=== PATIENT | female | born 1990 | race Caucasian/White ===

== ENCOUNTER 2016-08-28 09:52 | Emergency (ER) | payer OTHER ==
[~2016-08-28 09:52] MED LIST: BIOT800T PO; BUTA1CAP29 PO; CIPR500T94 PO; DIAZ10TA PO; HYDR-2678 PO; HYDR-971 PO; HYDR12.58 PO; OXYC-323 PO; POTA10TA17 PO; PROM12.553 RC; PROM25TA10 PO; [UNRECOGNIZED DRUG - OTHER]
[2016-08-28 09:55] VITALS: BP 125/61
[2016-08-28 10:29] LABS: BASO # 0.1 x10^3/uL (0.0-0.2); BASO % 1 % (0-3); EOS # 0.2 x10^3/uL (0.0-0.7); EOS % 3 % (0-3); HEMATOCRIT 41.2 % (36.0-47.0); LYMPH # 2.2 x10^3/uL (1.0-4.8); LYMPH % 35 % (24-48); MEAN CORPUSCULAR HEMOGLOBIN 28 pg (25-35); MEAN CORPUSCULAR HGB CONC 32 g/dL (31-37); MEAN CORPUSCULAR VOLUME 87 fL (79-100); MONO # 0.4 x10^3/uL (0.0-1.1); MONO % 6 % (0-9); NEUT # 3.5 x10^3uL (1.8-7.7); NEUT % 56 % (31-73); PLATELET COUNT 441 x10^3/uL (140-400); RED BLOOD COUNT 4.74 x10^6/uL (3.50-5.40); WHITE BLOOD COUNT 6.3 x10^3/uL (4.0-11.0)
[2016-08-28] MEDS ORDERED: HYDROMORPHONE PF 1 MG/ML DISP.SYRIN. IV ONE (10:45)
[2016-08-28] MEDS ORDERED: ONDANSETRON PF 4 MG/2 ML VIAL. IV ONE (10:45)
[2016-08-28] MEDS ORDERED: KETOROLAC 15 MG/ML VIAL. IV ONE (10:45)
[2016-08-28 11:29] LABS: AMORPHOUS SEDIMENT,UR PRESENT /HPF; BACTERIA,URINE 0 /HPF (0-FEW); BILIRUBIN,URINE NEG (NEG); CLARITY,URINE HAZY; COLOR,URINE YELLOW; GLUCOSE,URINE NEG (NEG); NITRITE,URINE NEG (NEG); SQUAMOUS EPITHELIAL CELL,UR FEW /LPF; UROBILINOGEN,URINE 0.2 mg/dL (0.2 mg/dL)
--- NOTE | 2016-08-28 12:27 | ED.ADGEN ---
Past History Past Medical History: Kidney Stones, Other Additional Past Medical Histor: Hyperemesis gravidarum Past Surgical History: Tonsillectomy, Other Smoking: Non-smoker Alcohol Use: None Drug Use: None Adult General HPI HPI Patient is a 26 y/o female with extensive kidney stone and pyelonephritis history c/o worsening left flank pain for last 24 hours. Associated nausea. s/p vaginal childbirth 1 month ago. 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 Would like to avoid imaging if possible. Currently nursing. Review of Systems Review of Systems Constitutional: Denies fever or chills [] Eyes: Denies change in visual acuity, redness, or eye pain [] HENT: Denies nasal congestion or sore throat [] Respiratory: Denies cough or shortness of breath [] Cardiovascular: No additional information not addressed in HPI [] GI: Denies abdominal pain, nausea, vomiting, bloody stools or diarrhea [] : Denies dysuria or hematuria [] Musculoskeletal: Denies back pain or joint pain [] Integument: Denies rash or skin lesions [] Neurologic: Denies headache, focal weakness or sensory changes [] Endocrine: Denies polyuria or polydipsia [] Current Medications Current Medications Current Medications Medications (Trade) Dose Ordered Sig/Poly Start Time Stop Time Status Last Admin Dose Admin Hydromorphone HCl (Dilaudid) 1 mg 1X ONCE 08/28/16 10:45 08/28/16 10:46 DC 08/28/16 10:35 1 MG Ketorolac Tromethamine (Toradol) 15 mg 1X ONCE 08/28/16 10:45 08/28/16 10:46 DC 08/28/16 10:35 15 MG Ondansetron HCl (Zofran) 4 mg 1X ONCE 08/28/16 10:45 08/28/16 10:46 DC 08/28/16 10:35 4 MG Allergies Allergies Allergies Coded Allergies Type Severity Reaction Last Updated Verified Latex, Natural Rubber Allergy Severe Rash 07/28/15 Yes Sulfa (Sulfonamide Antibiotics) Allergy Severe Hives 07/28/15 Yes amoxicillin Allergy Severe Diarrhea 07/28/15 Yes clavulanic acid Allergy Severe Diarrhea 07/28/15 Yes Physical Exam Physical Exam Constitutional: Well developed, well nourished, no acute distress, non-toxic appearance. [] HENT: Normocephalic, atraumatic, bilateral external ears normal, oropharynx moist, no oral exudates, nose normal. [] Eyes: PERRLA, EOMI, conjunctiva normal, no discharge. [] Neck: Normal range of motion, no tenderness, supple, no stridor. [] Cardiovascular:Heart rate regular rhythm, no murmur [] Lungs & Thorax: Bilateral breath sounds clear to auscultation [] Abdomen: Bowel sounds normal, soft, no tenderness, no masses, no pulsatile masses. [] Skin: Warm, dry, no erythema, no rash. [] Back: No tenderness, left CVA tenderness. [] Extremities: No tenderness, no cyanosis, no clubbing, ROM intact, no edema. [] Neurologic: Alert and oriented X 3, normal motor function, normal sensory function, no focal deficits noted. [] Psychologic: Affect normal, judgement normal, mood normal. [] Current Patient Data Vital Signs Vital Signs Date Time Temp Pulse Resp B/P Pulse Ox O2 Delivery O2 Flow Rate FiO2 08/28/16 10:35 18 08/28/16 09:55 98.4 75 97 Room Air Lab Results Laboratory Tests Test 08/28/16 10:05 08/28/16 10:16 Urine Collection Type Unknown Urine Color Yellow Urine Clarity Hazy Urine pH 5.5 Urine Specific [place] 1.010 Urine Protein Neg (NEG-TRACE) Urine Glucose (UA) Negmg/dL (NEG) Urine Ketones (Stick) Negmg/dL (NEG) Urine Blood Mod (NEG) Urine Nitrite Neg (NEG) Urine Bilirubin Neg (NEG) Urine Urobilinogen Dipstick 0.2mg/dL (0.2 mg/dL) Urine Leukocyte Esterase Small (NEG) Urine RBC 3-5/HPF (0-2) Urine WBC 1-4/HPF (0-4) Urine Squamous Epithelial Cells Few/LPF Urine Transitional Epithelial Cells Occ/LPF Urine Amorphous Sediment Present/HPF Urine Bacteria 0/HPF (0-FEW) Urine Mucus Mod/LPF White Blood Count 6.3x10^3/uL (4.0-11.0) Red Blood Count 4.74x10^6/uL (3.50-5.40) Hemoglobin 13.0g/dL (12.0-15.5) Hematocrit 41.2% (36.0-47.0) Mean Corpuscular Volume 87fL (79-100) Mean Corpuscular Hemoglobin 28pg (25-35) Mean Corpuscular Hemoglobin Concent 32g/dL (31-37) Red Cell Distribution Width 16.0% (11.5-14.5) H Platelet Count 441x10^3/uL (140-400) H Neutrophils (%) (Auto) 56% (31-73) Lymphocytes (%) (Auto) 35% (24-48) Monocytes (%) (Auto) 6% (0-9) Eosinophils (%) (Auto) 3% (0-3) Basophils (%) (Auto) 1% (0-3) Neutrophils # (Auto) 3.5x10^3uL (1.8-7.7) Lymphocytes # (Auto) 2.2x10^3/uL (1.0-4.8) Monocytes # (Auto) 0.4x10^3/uL (0.0-1.1) Eosinophils # (Auto) 0.2x10^3/uL (0.0-0.7) Basophils # (Auto) 0.1x10^3/uL (0.0-0.2) EKG EKG [] Radiology/Procedures Radiology/Procedures [] Course & Med Decision Making Course & Med Decision Making Pertinent Labs and Imaging studies reviewed. (See chart for details) Zofran, Dilaudid, and toradol given here. Soft signs of UTI on UA. Culture sent but rx for cipro given. Supportive care and follow up instructions given. [] Final Impression Final Impression Left flank pain[] Problems: Dragon Disclaimer Dragon Disclaimer This electronic medical record was generated, in whole or in part, using a voice recognition dictation system. RAMONA HALEY MD Aug 28, 2016 12:27
[2016-08-28 13:42] LABS: HEMOGLOBIN ISTAT 14.3 gm/dL; POTASSIUM ISTAT 4.1 mmol/L (3.5-5.0)
== END 2016-08-28 11:13 | disposition home or self-care (01) ==
LOC: ER 09:52
DX: O90.89 Other complications of the puerperium, not elsewhere classified (principal); R10.9 Unspecified abdominal pain; Z87.442 Personal history of urinary calculi; Z88.2 Allergy status to sulfonamides; Z88.1 Allergy status to other antibiotic agents; Z91.040 Latex allergy status
CPT/HCPCS: 36415; 80047; 81001; 85027; 87086; 96374; 96375; 99284; J1170; J1885; J2405; 99285-25

== ENCOUNTER 2016-08-28 17:24 | Emergency (ER) | payer OTHER ==
[2016-08-28] MEDS ORDERED: HYDROMORPHONE PF 1 MG/ML DISP.SYRIN. IV ONE (17:45)
--- NOTE | 2016-08-28 17:53 | RAD ---
PROCEDURE CT scan of the abdomen and pelvis without contrast 08/28/2016 HISTORY Right flank pain. History of recent nephrostomy tube placement. TECHNIQUE Unenhanced contiguous, 3 millimeter axial sections were obtained through the abdomen and pelvis. One or more of the following individualized dose reduction techniques were utilized for this study: 1. Automated exposure control. 2. Adjustment of the mA and/or kV according to patient size. 3. Use of iterative reconstruction technique. FINDINGS Comparison study is dated 07/31/2015. Images through the lung bases are within normal limits. The liver, spleen, pancreas and adrenal glands are within normal limits. A 5 millimeter nonobstructing calculus is seen involving the superior/mid pole of the right kidney. A 5 millimeter nonobstructing calculus is seen involving the lateral inferior aspect of the right kidney near the site of the patient's previous nephrostomy tube. No ureteral calculus is seen. There is no evidence of obstruction of either collecting system. No abnormal fluid collection is noted. The abdominal aorta tapers normally. The gallbladder is contracted. No free fluid or free air is within the abdomen. There is no evidence of bowel obstruction. The appendix is well-visualized and is within normal limits. Images through the pelvis demonstrate the urinary bladder distended with urine. The uterus is prominent. A 2.2 centimeter oval-shaped low attenuation structure is seen in the right adnexa. This likely represents a dominant follicle. No free fluid is seen. No distal ureteral calculus is noted. Minimal S-shaped curvature of the thoracolumbar spine is seen. IMPRESSION No acute abnormality is seen. Electronically signed by: Aden Huerta MD (Aug 28, 2016 17:52:06)
[2016-08-28 18:00] VITALS: BP 106/66
--- NOTE | 2016-08-28 18:14 | PHYS DOC ---
General Chief Complaint: FLANK PAIN Stated Complaint: FLANK PAIN Time Seen by MD: 17:57 Source: patient, old records Exam Limitations: no limitations Problems: History of Present Illness Initial Comments Pt is 26/F to ED requesting CT evaluation of right flank pain. Pt here earlier today see Dr Pacheco ED note. Pt seen earlier today as pt c/o R flank pain. Pt with h/o kidney stones, history of nephrostomy tube right kidney. Follows with urologist practices out of [place], denies urinary symptoms/hematuria. Pt is 27 days still , pt refused imaging at earlier visit wanting to minimize radiation exposure. Her UA showed SE contamination, 1 -4 WBC, tr hematuria. Pt d/c with cipro/toradol/norco, also given advise for with these meds (wait 4h after cipro, pump/dump after norco, etc) . Pt pain remained constant, pt began to wonder at home if her presumed stone may be too large to pass at home. No new/worsening of symptoms, currently only taking norco 5mg prn. Timing/Duration: constant Severity/Quality: moderate, aching, sharpness Location: right flank Radiation: none Activities at Onset: none Prior Genitourinary Problems: similar symptoms Sexual [place] History: not active Modifying Factors: improves with analgesics Associated Symptoms: other Allergies: Coded Allergies: Latex, Natural Rubber (Verified Allergy, Severe, Rash, 07/28/15) Sulfa (Sulfonamide Antibiotics) (Verified Allergy, Severe, Hives, 07/28/15) amoxicillin (Verified Allergy, Severe, Diarrhea, 07/28/15) clavulanic acid (Verified Allergy, Severe, Diarrhea, 07/28/15) Past Medical History Medical History: other (kidney stones, hyperemesis gravidarium) Surgical History: other (tonsil, nephrostomy) Family History Significant Family History: other Social History Smoker: non-smoker Alcohol: none Drugs: none Review of Systems Constitutional: denies chills, denies diaphoresis, denies fever, denies malaise Respiratory: denies cough, denies shortness of breath Cardiovascular: denies chest pain, denies palpitations Gastrointestinal: see HPI Genitourinary: see HPI Musculoskeletal: see HPI Psychiatric/Neurological: denies headache, denies numbness, denies paresthesia Physical Exam General Appearance: WD/WN, no apparent distress HEENT: normal ENT inspection Neck: non-tender, supple Cardiovascular/Respiratory: normal peripheral pulses, no respiratory distress Gastrointestinal: non tender, soft Back: no CVA tenderness, no vertebral tenderness Extremities: non-tender, normal inspection Neurologic/Psychiatric: 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 PHYSICIAN: RAMONA PACHECO MD REASON: FLANK PAIN PROCEDURE: CT ABDOMEN PELVIS WO CONTRAST PROCEDURE CT scan of the abdomen and pelvis without contrast 08/28/2016 HISTORY Right flank pain. History of recent nephrostomy tube placement. TECHNIQUE Unenhanced contiguous, 3 millimeter axial sections were obtained through the abdomen and pelvis. One or more of the following individualized dose reduction techniques were utilized for this study: 1. Automated exposure control. 2. Adjustment of the mA and/or kV according to patient size. 3. Use of iterative reconstruction technique. FINDINGS Comparison study is dated 07/31/2015. Images through the lung bases are within normal limits. The liver, spleen, pancreas and adrenal glands are within normal limits. A 5 millimeter nonobstructing calculus is seen involving the superior/mid pole of the right kidney. A 5 millimeter nonobstructing calculus is seen involving the lateral inferior aspect of the right kidney near the site of the patient's previous nephrostomy tube. No ureteral calculus is seen. There is no evidence of obstruction of either collecting system. No abnormal fluid collection is noted. The abdominal aorta tapers normally. The gallbladder is contracted. No free fluid or free air is within the abdomen. There is no evidence of bowel obstruction. The appendix is well-visualized and is within normal limits. Images through the pelvis demonstrate the urinary bladder distended with urine. The uterus is prominent. A 2.2 centimeter oval-shaped low attenuation structure is seen in the right adnexa. This likely represents a dominant follicle. No free fluid is seen. No distal ureteral calculus is noted. Minimal S-shaped curvature of the thoracolumbar spine is seen. IMPRESSION No acute abnormality is seen. Electronically signed by: Aden Huerta MD (Aug 28, 2016 17:52:06) DICTATED AND SIGNED BY: ADEN HUERTA MD DATE: 08/28/16 7156 CC: RAMONA PACHECO MD; [facility]; TIA CHANG DO, MPH ~ Pt feels relieved with results. I discussed increasing norco if needed, VSS no emergent cause for further evaluation or admission. Pt agreeable to discharge, expressed agreement/understanding with treatment plan. Departure Time of Disposition: 18:10 Disposition: 01 HOME, SELF-CARE Diagnosis: 5mm nonobstructing R kidney stones, uti Condition: GOOD Patient Instructions: Kidney Stones, [id number] Additional Instructions: Rest, no strenuous activity. Continue prior /medication precautions from prior ED visit. Aggressive hydration with gatorade, water. OK to increase norco 5mg to two tabs every 4-6 hours for pain. Must balance increased dosing with . Follow up with your urologist by phone tomorrow to schedule next available follow up appointment. Return to ED with new or changing symptoms. IVET JAY DO Aug 28, 2016 18:14
== END 2016-08-28 18:21 | disposition home or self-care (01) ==
LOC: ER 17:24
DX: N20.0 Calculus of kidney (principal); N39.0 Urinary tract infection, site not specified; Z88.2 Allergy status to sulfonamides; Z88.1 Allergy status to other antibiotic agents; Z91.040 Latex allergy status
CPT/HCPCS: 74176; 96374; 99284; J1170

== ENCOUNTER 2016-10-28 09:30 | Emergency (ER) | payer OTHER ==
[~2016-10-28] VITALS: Ht 157.5 cm; Wt 77.1 kg
--- NOTE | 2016-10-28 10:02 | PHYS DOC ---
General Chief Complaint: ABDOMINAL PAIN Stated Complaint: ABDOMINAL PAIN Time Seen by MD: 09:35 Source: patient, old records Exam Limitations: no limitations Problems: History of Present Illness Initial Comments Pt is 26/F to ED c/o Crohn's exacerbation. Pt states she has Crohn's history and her GI is located in [facility]. She follows months and for her general care and states for the past several months she's been dealing with kidney stones or recurrent kidney infections. She's been off of antibiotics for several months but says 3 weeks ago she began developing symptoms consistent with prior Crohn's exacerbations. She describes generalized abdominal discomfort with diarrhea but she's noticed no blood. She says she tried to get in at [facility] but they deferred preferring instead that she follow-up with her grease press helper. She says her grease press helper called and enterocort last week and that usually her symptoms resolve within 3 days of starting the medication. This time the medication did not help. She says she's had persistent daily diarrhea and severe generalized abdominal discomfort. The patient first mentioned to the RN and then to me that this past week the pain had weighed on her mood so greatly that she had lost the will to live. She states she's had fleeting suicidal thoughts but has come up with no plan and has no history of prior suicide attempts. She was diagnosed with depression in the past and says she took Zoloft until the symptoms resolved and she was stopped by her physician. She is requesting assistance for mental health and we will clear her medically and use tele-psych for screening. VSS Timing/Duration: constant (3 wks) Severity: severe Modifying Factors: worse with eating Associated Symptoms: nausea/vomiting, other Allergies: Coded Allergies: Latex, Natural Rubber (Verified Allergy, Severe, Rash, 07/28/15) Sulfa (Sulfonamide Antibiotics) (Verified Allergy, Severe, Hives, 07/28/15) amoxicillin (Verified Allergy, Severe, Diarrhea, 07/28/15) clavulanic acid (Verified Allergy, Severe, Diarrhea, 07/28/15) Past Medical History Medical History: kidney stones, other (Crohn's, hyperemesis gravidarium, depression) Surgical History: tonsillectomy, other (nephrostomy) Family History Significant Family History: other Social History Smoker: non-smoker Alcohol: none Drugs: none Review of Systems Constitutional: denies chills, denies diaphoresis, denies fever, malaise Respiratory: denies cough, denies shortness of breath Cardiovascular: denies chest pain, denies palpitations Gastrointestinal: see HPI, abdominal pain, diarrhea Genitourinary: denies dysuria, denies frequency, denies hematuria Musculoskeletal: denies back pain, denies joint swelling, denies neck pain Skin: denies lesions, denies lumps, denies rash Psychiatric/Neurological: see HPI, denies headache, denies numbness, denies paresthesia Physical Exam General Appearance: mild distress, obese Eyes: bilateral eye normal inspection, bilateral eye PERRL, bilateral eye EOMI Respiratory: lungs clear, normal breath sounds Cardiovascular: normal peripheral pulses, regular rate, rhythm Gastrointestinal: normal bowel sounds, soft (nondistended, no tenderness, no mass), no organomegaly Back: no CVA tenderness, no vertebral tenderness Extremities: non-tender, normal inspection Neurologic/Psychiatric: 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 PHYSICIAN: IVET JAY DO REASON: crohn's PROCEDURE: ACUTE ABDOMEN SERIES Acute abdomen series with chest, 3 views, 10/28/2016: History: Abdominal pain with blood in stool An IUD is projected over the mid pelvis. The abdominal gas pattern is unremarkable. No free air is seen in the abdomen. There is no evidence of organomegaly. There is a mild thoracolumbar scoliosis. The heart size is normal. The lungs are clear. There is no evidence of pleural fluid. IMPRESSION: 1. An IUD is in place. 2. No acute abdominal abnormality is detected. DICTATED AND SIGNED BY: AMINAH CANO MD DATE: 10/28/16 1031 CC: IVET JAY DO; TIA CHANG DO, MPH ~ 1126: CRP normal, overall reassuring labs/urine studies. Pt says she cannot give stool specimen currently, given her recent abx use it is reasonable to check stools for CDT. Pt medically clear for telepsych. 1302: RN reports that, psych we will recommend inpatient treatment. Awaiting the written report and then we will start to try to find placement. Telepsych a report received, diagnosis is major depressive disorder recurrent episodes severe. Recommendations are inpatient psychiatry evaluation and treatment. Recommended increasing Zoloft for 200 mg at bedtime will pass that along to the admitting physician. 1810: The patient is still awaiting placement, she signed out to incoming ER physician Dr. Foster at 1800 shift change. See his documentation for further results and disposition. IMPRESSIONS: Major depressive disorder Suicidal ideation Abdominal discomfort with diarrhea IVET JAY DO Oct 28, 2016 10:02
[2016-10-28] MEDS ORDERED: methylPREDNISolone SOD SUCC PF 125 MG/2 ML VIAL. IV ONE (10:15)
[2016-10-28] MEDS ORDERED: ONDANSETRON PF 4 MG/2 ML VIAL. IV ONE (10:15)
[2016-10-28] MEDS ORDERED: IV NORMAL SALINE 1,000ML 1,000 ML IV SCH (10:15)
[2016-10-28 10:27] LABS: BASO % 0 % (0-3); EOS % 0 % (0-3); HEMATOCRIT 38.2 % (36.0-47.0); LYMPH # 1.6 x10^3/uL (1.0-4.8); LYMPH % 19 % (24-48); MEAN CORPUSCULAR HEMOGLOBIN 30 pg (25-35); MEAN CORPUSCULAR HGB CONC 34 g/dL (31-37); MEAN CORPUSCULAR VOLUME 87 fL (79-100); MONO # 0.4 x10^3/uL (0.0-1.1); MONO % 4 % (0-9); NEUT # 6.4 x10^3uL (1.8-7.7); NEUT % 76 % (31-73); PLATELET COUNT 409 x10^3/uL (140-400); RED BLOOD COUNT 4.38 x10^6/uL (3.50-5.40); RED CELL DISTRIBUTION WIDTH 15.5 % (11.5-14.5); WHITE BLOOD COUNT 8.4 x10^3/uL (4.0-11.0)
[2016-10-28 10:28] LABS: ALBUMIN 3.8 g/dL (3.4-5.0); C REACTIVE PROTEIN 2.4 mg/L (0-3.3); CALCIUM 9.4 mg/dL (8.5-10.1); CREATININE 0.8 mg/dL (0.6-1.0); POTASSIUM 3.8 mmol/L (3.5-5.1); TOTAL BILIRUBIN 0.4 mg/dL (0.2-1.0); TOTAL PROTEIN 7.5 g/dL (6.4-8.2)
[2016-10-28] MEDS: fentaNYL PF 100 MCG/2 ML VIAL IV PRN ×4 (10:30→14:26)
--- NOTE | 2016-10-28 10:36 | RAD ---
Acute abdomen series with chest, 3 views, 10/28/2016: History: Abdominal pain with blood in stool An IUD is projected over the mid pelvis. The abdominal gas pattern is unremarkable. No free air is seen in the abdomen. There is no evidence of organomegaly. There is a mild thoracolumbar scoliosis. The heart size is normal. The lungs are clear. There is no evidence of pleural fluid. IMPRESSION: 1. An IUD is in place. 2. No acute abdominal abnormality is detected.
[2016-10-28 11:18] LABS: AMPHETAMINE/METHAMPHETAMINE NEG (NEG); BACTERIA,URINE 0 /HPF (0-FEW); BARBITURATES NEG (NEG); BENZODIAZEPINES NEG (NEG); BILIRUBIN,URINE NEG (NEG); CANNABINOIDS NEG (NEG); CLARITY,URINE CLEAR; COCAINE NEG (NEG); COLOR,URINE YELLOW; GLUCOSE,URINE NEG (NEG); METHADONE NEG (NEG); NITRITE,URINE NEG (NEG); OPIATES NEG (NEG); PHENCYCLIDINE NEG (NEG); RBC,URINE RARE /HPF (0-2); SQUAMOUS EPITHELIAL CELL,UR FEW /LPF; UROBILINOGEN,URINE 0.2 mg/dL (0.2 mg/dL)
[2016-10-28] MEDS ORDERED: HYDROcodone/APAP 5/325MG 1 TAB TABLET PO ONE (14:30)
[2016-10-28] MEDS ORDERED: ONDANSETRON ODT 4 MG TAB.RAPDIS PO ONE (14:30)
[2016-10-28] MEDS ORDERED: IBUPROFEN 600 MG TABLET. PO ONE (20:00)
--- NOTE | 2016-10-29 00:07 | ACF ---
Admission Criteria Forms MAJOR DEPRESSIVE DISORDER Clinical Indications for Admission to Inpatient Care ( Place 'X' for any and all applicable criteria): Hospital admission is needed for appropriate care of the patient because of ANY ONE of the following[A](3)(4)(5): [ ]I. Inpatient behavioral care is needed as indicated by ALL of the following: [ ]a) Treatment is needed because of patient risk due to ANY ONE of the following: [ ]i) Imminent danger to self due to ANY ONE of the following ( 7)(8): [ ]1) Imminent risk for recurrence of a suicide attempt or act of serious self-harm as indicated by ALL of the following: [ ]A. Very recent suicide attempt or deliberate act of serious self-harm [ ]B. Absence of sufficient relief of the action' s precipitants [ ]2) Current plan for suicide or serious self-harm [ ]3) Persistent thoughts of suicide or serious self- harm that cannot be adequately monitored at a lower level of care because of ANY ONE of the following: [ ]A. Insufficient behavioral care provider availability [ ]B. Inadequate patient support system [ ]C. Patient characteristics such as high impulsivity or unreliability [ ]D. Ruminative flooding; uncontrollable and overwhelming profusion of negative thoughts [ ]E. Frantic hopelessness; fatalistic conviction that life will not improve along with oppressive sense of entrapment and doom [ ]F. Active substance use disorder is present [ ]G. Ready access to lethal means is present [ ]ii) Imminent danger to others due to ANY ONE of the following( 10)(11): [ ]1) Imminent risk for recurrence of an attempt to seriously harm another as indicated by ALL of the following: [ ]A. Very recent attempt to seriously harm another [ ]B. Absence of sufficient relief of the action' s precipitants [ ]2) Current plan for homicide or seriously harming another [ ]3) Command auditory hallucination for serious self harm to self or others [ ]4) Persistent thoughts of homicide or seriously harming another that cannot be adequately monitored at a lower level of care because of ANY ONE of the following: [ ]A. Insufficient behavioral care provider availability [ ]B. Inadequate patient support system [ ]C. Patient characteristics such as high impulsivity or unreliability [ ]D. Active substance use disorder is present [ ]E. Ready access to lethal means is present [ ]iii) Behavioral health disorder is present with ALL of the following: (12)(16)(17)(18): [ ]1) Severe psychiatric or behavioral symptoms are present , including ANY ONE of the following: [ ]A. Hallucinations that are very bothersome to patient or are associated with severe pressure to respond to voices(17)(18) [ ]B. Delusions that are very bothersome to patient or are associated with severe pressure to act on beliefs(17)(18) [ ]C. Disorganized speech that is almost impossible to follow(17)(18) [ ]D. Motor behavior that is almost constantly abnormal or bizarre or catatonic(17)(18) [ ]E. Severe negative symptoms (eg, severe decrease in facial expression or self-initiated behavior)(17)(18) [ ]F. Severe jeannette (eg, daily periods of extensive mood elevation or irritability)(19)(20)(21)(22) [ ]G. Severe depression (eg, daily symptoms of deep hopelessness)[C] [ ]H. Severe anxiety[D] [ ]I. Severe comorbid substance use disorder with inability to control use, intense withdrawal symptoms, or extreme negative impact on primary psychiatric disorder(2)(7)(25) [ ]J. Severe impairment in cognition, memory, judgment, or impulse control(26)(27) [ ]K. Severe impairment in behavior, including physical or verbal aggression, disruptive behaviors, or internal or external anger manifestations (eg, rumination or outbursts)(28) [ ]L. Other psychiatric symptoms which are acute or represent worsening over baseline (eg, hyperactivity, agitation, obsessions, or compulsions)(29)(30)(31) [ ]2) Severe dysfunction in daily living is present as indicated by ANY ONE of the following: [ ]A. Extreme deterioration in social interactions ( eg, threatening behaviors with little or no provocation) [ ]B. Complete withdrawal from all social interactions [ ]C. Complete neglect of self-care with associated impairment in physical status [ ]D. Extreme disruption in vegetative function (eg , life-sustaining functions such as eating) [ ]E. Complete inability to maintain any appropriate aspect of personal responsibility in any adult roles (eg, occupational, parental) [ ]b) Treatment situation and needs are appropriate for level as indicated by ANY ONE of the following(13)(16): [ ]i) Patient unwilling to participate voluntarily and requires treatment (eg, legal commitment) in an involuntary unit [ ]ii) Voluntary treatment at lower level not feasible (e.g., very short-term crisis intervention or residential care unavailable or unacceptable for patient condition) [ ]iii) Need for physical restraint, seclusion, or other involuntary control (e.g., actively violent patient and adequate clinical rapport cannot be established to control violence) (25) [ ]iv) [id number] medical or nursing care to address symptoms and initiate intervention is required; specific need has been identified [ ]II. Delirium as described by ANY ONE of the following (26)(27)(28): [ ]a) Delirium due to alcohol or sedative [B] withdrawal (16)(29)(30)( 31) [ ]b) Delirium of uncertain etiology that has not responded to appropriate treatment in emergency department or urgent care setting (32)(33) [ ]c) Delirium that prevents performance of a life-sustaining function (eg, feeding or hydrating oneself) (9) [ ]III. Administration of a somatic treatment that requires [id number] medical or nursing care because of a potential adverse physical effect or medical comorbidity(7) [X]IV. Behavioral Health condition, symptom, or finding for which emergency and observation care have failed or are not considered appropriate (Contents from [facility] clinical indications for admission to inpatient care have been integrated in this form) The original [facility] content created by [facility] has been revised. The portions of the content which have been revised are identified through the use of italic text or in bold, and [facility] has neither reviewed nor approved the modified material. All other unmodified content is copyright [facility]. Please see references footnoted in the original [facility] edition 2016 Admission Criteria Met?: Yes PARKER EPSTEIN Oct 29, 2016 00:07
[2016-10-29 08:15] VITALS: BP 124/60
== END 2016-10-29 08:15 | disposition short-term general hospital (02) ==
LOC: ER 09:30
DX: R10.84 Generalized abdominal pain (principal); R19.7 Diarrhea, unspecified; R45.851 Suicidal ideations; F32.9 Major depressive disorder, single episode, unspecified; K50.911 Crohn's disease, unspecified, with rectal bleeding; Z87.442 Personal history of urinary calculi; Z88.2 Allergy status to sulfonamides; Z88.1 Allergy status to other antibiotic agents; Z91.040 Latex allergy status
CPT/HCPCS: 36415; 74022; 80053; 80305; 80320; 81001; 81025; 83690; 85027; 86140; 87086; 96361; 96374; 96375; 96376; 99285; J2405; J2930; J3010; Q0162; G0480; G0481; J7030